=== PATIENT | female | born 1940 | race Caucasian/White ===

== ENCOUNTER 2017-10-31 06:44 | Day surgery (SDC) | payer MEDICARE, OTHER ==
[~2017-10-31 06:44] MED LIST: KETOROLAC TROMETHAMINE 0.45% 4 DROP/0.4 ML DROPERETTE OD PRN
[2017-10-31] MEDS: TETRACAINE HCL 0.5% OPH SOLN 2 ML OD PRN ×3 (07:00→07:53)
[2017-10-31] MEDS: CYCLOPENTOLATE 0.2%/PHENYLEPHRINE 1% OPH SOLN 2 ML OD PRN ×3 (07:01→07:26)
[2017-10-31] MEDS: BESIFLOXACIN HCL 0.6% OPH SUSP 5 ML BOTTLE OD PRN ×3 (07:01→08:17)
[2017-10-31] MEDS: TROPICAMIDE 1% OPH SOLN 3 ML OD PRN ×3 (07:01→07:26)
[2017-10-31] MEDS ORDERED: EPINEPHRINE INJ/PF 1 MG/1 ML AMPULE ONE (07:06)
[2017-10-31] MEDS ORDERED: LIDOCAINE 1% INJ-PF (10 MG/ML) 30 ML SDV ONE (07:07)
[2017-10-31] MEDS ORDERED: CHONDR SU A NA/HYALUR INTRAOC KIT (SURGICARE) ONE (07:07)
[2017-10-31] MEDS ORDERED: MIDAZOLAM 2 MG/2 ML INJ ONE (07:16)
--- NOTE | 2017-10-31 14:54 | [facility] OPERATIVE REPORT E ---
[facility] Operative Report NAME: ROMAN VIRGEN AGE: 77Y DATE OF SURGERY: 10/31/2017 ROOM: PREOPERATIVE DIAGNOSIS: CATARACT, RIGHT EYE. POSTOPERATIVE DIAGNOSIS: CATARACT, RIGHT EYE. OPERATION: Cataract extraction with intraocular lens implant of the right eye. SURGEON: KENDAL GREY M.D. ANESTHESIA: Topical. PROCEDURE: After obtaining appropriate consent, the patient's @ eye was prepped and draped in sterile fashion as well as the surgeon in a sterile manner and cataract surgery was started. First a paracentesis blade was used to make a small side-port incision. Viscoelastic was used to inflate the anterior chamber. Next a 2.4 mm incision was made with the paracentesis blade. A continuous capsulorrhexis incision was made using a cystotome and Utrata forceps. Following this hydrodissection was carried out to make the lens fully loose and mobile and it was rotated 90 degrees. Following this, a mjscwk-vzo-csovblo technique was used to phacoemulsify the lens with a CDE of 18.61. The remaining cortex was removed with irrigation/aspiration. Provisc was instilled into the capsular bag to inflate the bag. A SN60WF, 18.5 diopter lens was placed. The remaining viscoelastic material was removed with irrigation/aspiration. The incision was found to be watertight. Vigamox was instilled in the eye and a protective shield was placed over the eye. The patient returned to the postoperative recovery in stable condition. DICTATING PHYSICIAN: KENDAL GREY M.D. [id number] PHY#: [id number] ID: [id number] JOB#: [id number] ACCT: [id number] cc:KENDAL GREY M.D. > MTDD
--- NOTE | 2017-10-31 15:00 | [facility] DISCHARGE SUMMARY E ---
[facility] Discharge Summary NAME: ROMAN VIRGEN AGE: 77Y ADMITTED: 10/31/2017 DISCHARGED: 10/31/2017 FINAL DIAGNOSIS: Cataract, right eye. HISTORY: The patient is a 77-year-old female who underwent cataract extraction of the right eye. HOSPITAL COURSE: The patient underwent surgery because of having trouble seeing words on the television and the screen at the restorationist. DISCHARGE INSTRUCTIONS: She is to be on a regular diet. No bending at waist. No heavy lifting. She is to use Besivance, Ilevro and Durezol at 3 p.m. and 8 p.m. and sleep with the right eye shield. I will see her for her 1-day postoperative tomorrow. DICTATING PHYSICIAN: KENDAL GREY M.D. [id number] PHY#: [id number] ID: [id number] JOB#: [id number] ACCT: [id number] cc:KENDAL GREY M.D. >
== END 2017-10-31 09:03 | disposition home or self-care (01) ==
LOC: SC 06:44
PROVIDERS: ATTEND Internal Medicine
DX: H25.11 Age-related nuclear cataract, right eye (principal); H04.123 Dry eye syndrome of bilateral lacrimal glands; H40.053 Ocular hypertension, bilateral; Z96.1 Presence of intraocular lens; H43.813 Vitreous degeneration, bilateral; I15.0 Renovascular hypertension; E78.00 Pure hypercholesterolemia, unspecified; I49.9 Cardiac arrhythmia, unspecified; I51.9 Heart disease, unspecified; Z79.899 Other long term (current) drug therapy; Z88.8 Allergy status to other drugs, medicaments and biological substances; Z87.891 Personal history of nicotine dependence; Z79.01 Long term (current) use of anticoagulants
CPT/HCPCS: 66984; V2632; J2250; J3490 ×2; A9270; J0171; 142

== ENCOUNTER 2020-05-11 08:22 | Day surgery (SDC) | payer MEDICARE, OTHER ==
[2020-05-06 13:10] LABS: HEMATOCRIT 40.6 % (36.0-47.0); HEMOGLOBIN 13.7 g/dL (12.0-15.5); MEAN CORPUSCULAR HGB CONC 33.8 g/dL (32.0-36.0); MEAN CORPUSCULAR VOLUME 89 fl (80-97); PLATELET COUNT 227 10^3/uL (150-450); RED BLOOD COUNT 4.58 10^6/uL (3.72-5.28); RED CELL DISTRIBUTION WIDTH 13.8 % (11.5-14.0); WHITE BLOOD COUNT 8.1 10^3/uL (4.0-10.5)
[2020-05-06 13:33] LABS: ANION GAP 12 (5-19); BLOOD UREA NITROGEN 23 mg/dL (7-20); CALCIUM 10.2 mg/dL (8.4-10.2); CARBON DIOXIDE 28 mmol/L (22-30); CHLORIDE 102 mmol/L (98-107); GLUCOSE 100 mg/dL (75-110)
--- NOTE | 2020-05-07 09:47 | EKG REPORT ---
SEVERITY:- ABNORMAL ECG - SINUS RHYTHM LEFT VENTRICULAR HYPERTROPHY ANTERIOR Q WAVES, POSSIBLY DUE TO LVH : Confirmed by: Ernesto Walton 07-May-2020 09:46:16
[~2020-05-11 08:22] MED LIST changes: +CEFAZOLIN 1 GM/D5W RTU 1 GM/50 ML RTUPB IV PRN; -KETOROLAC TROMETHAMINE 0.45% 4 DROP/0.4 ML DROPERETTE OD PRN; +LACTATED RINGERS 1000 ML IV PRN; +LIDOCAINE 0.5% INJ-PF (5 MG/ML) 50 ML SDV SUBCUT PRN
[2020-05-11] MEDS ORDERED: LIDOCAINE 4% CREAM 5 GM TUBE ONE (08:25)
[2020-05-11] MEDS ORDERED: CEFAZOLIN 1 GM/D5W RTU 1 GM/50 ML RTUPB IV ONE (08:25)
[2020-05-11] MEDS ORDERED: LIDOCAINE 2% INJ-PF (20 MG/ML) 10 ML AMPUL ONE (13:42)
[2020-05-11] MEDS ORDERED: FENTANYL CITRATE INJ/PF 100 MCG/2 ML AMPUL ONE ×2 (13:42→15:23)
[2020-05-11] MEDS ORDERED: HYDROMORPHONE HCL INJ/PF 2 MG/ML AMPULE ONE (13:42)
[2020-05-11] MEDS ORDERED: DEXAMETHASONE SOD PHOSPHATE INJ 4 MG/1 ML VIAL ONE (13:42)
[2020-05-11] MEDS ORDERED: PROPOFOL INJ 200 MG/20 ML VIAL IV ONE (13:43)
[2020-05-11] MEDS ORDERED: ONDANSETRON HCL INJ/PF 4 MG/2 ML SDV ONE (13:43)
[2020-05-11] MEDS ORDERED: LIDOCAINE 1%/EPINEPHRINE INJ 20 ML VIAL ONE (13:49)
[2020-05-11] MEDS ORDERED: MICROFIBRILLAR COLLAGEN 1 GM PACK ONE (13:49)
[2020-05-11] MEDS ORDERED: METHYLENE BLUE 50 MG/10 ML AMPULE ONE (14:04)
[2020-05-11] MEDS ORDERED: MEPERIDINE HCL/PF INJ 25 MG/1 ML DISP.SYRIN IV PRN (14:25)
[2020-05-11] MEDS ORDERED: DIPHENHYDRAMINE HCL 50 MG/ML VIAL IV PRN (14:25)
[2020-05-11] MEDS ORDERED: OXYCODONE-ACETAMINOPHEN 5-325 MG TABLET PO PRN ×3 (14:25→15:21)
[2020-05-11] MEDS ORDERED: PROMETHAZINE HCL INJ 25 MG/1 ML VIAL IV PRN ×2 (14:25)
[2020-05-11] MEDS ORDERED: MORPHINE SULFATE 10 MG/ML INJ IV PRN (14:25)
[2020-05-11] MEDS ORDERED: FENTANYL CITRATE INJ/PF 100 MCG/2 ML AMPUL IV PRN ×2 (14:25)
--- NOTE | 2020-05-11 15:04 | RADIOLOGY REPORT (SQ) ---
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 899 OTHER PENITENTIARY (CURRENT) DRUG THERAPY COMPARISON: None. RADIONUCLIDE AND DOSE: 574 microcuries TC-99m tilmanocept - Lymph[employer]ek. The route of agent administration: Subcutaneous in the skin. TECHNIQUE: The skin of the right breast was prepped in sterile fashion. The radiopharmaceutical was administered in equally divided doses in the periareolar breast. LIMITATIONS: None. FINDINGS: Images demonstrate activity at the injection site as well as within the right axilla. IMPRESSION: ADMINISTRATION OF RADIOPHARMACEUTICAL FOR SENTINEL LYMPH NODE EVALUATION. TECHNICAL DOCUMENTATION: JOB ID: [id number] 2010 [email or web address]- All Rights Reserved Reading location - IP/workstation name: [email or web address]
[2020-05-11] MEDS ORDERED: GLYCOPYRROLATE 1 MG/5 ML VIAL ONE (15:05)
--- NOTE | 2020-05-11 15:06 | RADIOLOGY REPORT (SQ) ---
EXAM DESCRIPTION: WIRE LOC MAMMO; BREAST SPECIMEN IMAGES COMPLETED DATE/TIME: 05/11/2020 11:15 am; 05/11/2020 2:54 pm REASON FOR STUDY: RT NEEDLE LOCALIZATION N63.10; RIGHT BREAST SPECIMEN IN OR N63.10 UNSPECIFIED LUM P IN THE RIGHT BREAST, UNSPECIFIED LA Z79.899 OTHER PULMONARY DISEASE SPECIALIST (CURRENT) DRUG THERAPY COMPARISON: None. TECHNIQUE: The biopsy marker in the right breast was localized mammographically using a grid marker . The skin of the breast was prepped in sterile fashion and local anesthesia was provided. The loca lization needle was advanced to the target. The tip was positioned adjacent to the target and confir med with two orthogonal views. Surgical dye was not injected for this procedure. The wire was placed through the needle and the hook engaged. Post procedure mammogram demonstrates satisfactory position of the needle and wire. Specimen radiograph demonstrates the intact localization wire as well as the targeted lesion within t he biopsy specimen. LIMITATIONS: None. FINDINGS: Procedure as above. Pathology: Pending. IMPRESSION: SUCCESSFUL NEEDLE LOCALIZATION OF THE LESION IN THE RIGHT BREAST. FOLLOW-UP PER THE PATIENT'S SURGEON. TECHNICAL DOCUMENTATION: JOB ID: [id number] 2010 [employer]- All Rights Reserved Reading location - IP/workstation name: [email or web address]
--- NOTE | 2020-05-11 15:21 | Discharge Summary ---
Discharge Summary (SDC) - Discharge Final Diagnosis: Right breast mass Date of Surgery: 05/11/20 Discharge Date: 05/11/20 Condition: Good Treatment or Instructions: [facility] [address] [id number] Care Instructions Following Your Lumpectomy Activities: Resume normal activities when you feel comfortable. It is best to remain as active as possible to speed your recovery. It is common to experience some fatigue after surgery and you may find that short naps are helpful. Avoid strenuous activity such as weight lifting, tennis, etc at your surgical site for two weeks. Perform gentle arm exercises daily and do not favor your operative arm to due increased risk of mobility issues postoperatively. No driving for 7 days after surgery. Do not drive if you are taking pain medication other than Tylenol or Ibuprofen. No swimming, tub baths or soaking in a hot tub for 4 weeks. There are no dietary restrictions. Do not smoke as this impairs wound healing. Surgical Site care: You may shower 24 hours after surgery to include washing the wound with soap and water using your hands. Do not scrub the incision. Pat the area dry with a towel. You do not need to recover the wound although some patients find that they feel more comfortable using a light dressing for a few days to absorb any minimal drainage which may occur. Do not use heating pad or apply an ice pack to the operative site. You may apply deodorant if you are careful to avoid getting it on the wound itself. Medications: Resume all of your normal prescription medications after your surgery unless instructed otherwise. You may experience constipation after surgery while taking pain medications. If using a narcotic on a regular basis, take a stool softener such as Colace twice a day. It is helpful to stay hydrated by drinking lots of fluids. Walking is also helpful and is good exercise after surgery. If you need extra help, use Milk of Magnesia according to the directions on the package. Follow-up: Call our office at to make a follow-up appointment in 10-14 days. Your doctor will call to discuss the pathology report with you as soon as it is available. Concerns: If you had a sentinel lymph node biopsy with your mastectomy, your urine may have a greenish discoloration. This is normal and will resolve as the blue dye slowly leaves your system. If you notice significant leakage around the drains, this is not normal. The drains may be clogged. Please call our office to come in immediately for the drains to be checked. Some bruising may occur and will go away over time. If you have a fever of 101.5 or greater, chills, redness at the incision site, excessive drainage from your wound or severe pain not relieved by pain medication, call your doctor. A physician is available 24 hours a day 7 days a week in addition to regular office hours. If problems arise after normal office hours please call the hospital at . Please call if you have any questions or concerns. Prescriptions: Tramadol HCl [Ultram 50 mg Tablet] 50 mg PO Q6HP PRN #20 tab PRN Reason: Referrals: ELMER BEJARANO MD [Primary Care Provider] - Discharge Diet: As Tolerated Discharge Activity: Balance Activity w/Rest, No Lifting Over 10 Pounds, No Lifting/Push/Pulling, Walk Frequently Report the Following to Your Physician Immediately: Increase in Pain, Yellow Skin, Fever over 101 Degrees, Unusual Bleeding, Redness, Swelling, Warmth, Increased Soreness, Drainage-Foul Smelling, Large Clots
--- NOTE | 2020-05-11 15:24 | Operative Report ---
Operative Report DATE OF SURGERY: 05/11/20 PREOPERATIVE DIAGNOSIS: 1. Proliferative lesion right breast status post core biopsy. 2. Abdominal aortic aneurysm POSTOPERATIVE DIAGNOSIS: Same OPERATION: 1. Focused ultrasound of the right breast, and ultrasound directed right breast excisional lumpectomy following needle wire localization. 2. [place] lymph node biopsy right axilla x1 using dual mapping techniques. 3. Interpretation of specimen radiograph intraoperatively SURGEON: JOSEPH FRYE MIXING MACHINE OPERATOR: ROMMEL HAWKINS ANESTHESIA: Other - Via LMA TISSUE REMOVED OR ALTERED: Right breast lumpectomy with needle localization wire and clip; right axillary sentinel lymph node COMPLICATIONS: None ESTIMATED BLOOD LOSS: Scant INTRAOPERATIVE FINDINGS: See below PROCEDURE: Patient was seen in the preop holding area where the right breast was marked, an d right axilla skin with the neoprobe. There was an area of increased activity consistent with successful lymphatic mapping consistent with lymphoscintigraphy showing an area of increased activity in the right axilla. The patient was taken to the operating room where general anesthesia was induced via LMA. The right breast and axilla were exposed widely. The previously placed needle localization wire were trimmed at the patient's skin level. The right breast was then injected with 2 cc of full-strength methylene blue, areolar border, intradermally. The right breast was then prepped and draped in sterile fashion along with the right axilla with Betadine Surgical plan and surgical timeout were conducted. We proceeded with the sentinel lymph node biopsy portion of the operation first. The right axilla was scanned with the neoprobe, an area of increased activity again confirmed in the low axilla. The skin was anesthetized 1% plain lidocaine, and a 3 cm incision was made with a #10 blade overlying the point of maximum 2 activity. A sentinel lymph node was harvested at level 1, both blue and hot with an in vivo count of 30,056 and an ex vivo count of 38,740. Background counts were negligible. The sentinel lymph node biopsy portion of the operation using dual mapping technique was felt to be complete. Attention was now directed to the right breast lumpectomy. The variable frequency linear transducer was used to scan the right breast. The previously placed clip marker at site of minimally invasive biopsy could not be seen with ultrasound, however the needle and wire could be tracked. The wire entered the breast approximately 6 cm medial to the right nipple at the 3 o'clock position. The termination point was at the nipple. Therefore we anesthetized the right areolar border with 1% plain lidocaine, and a 3-1/2 to 4 cm curvilinear incision was made with a #10 blade. Using ultrasound as a guide, as well as visual inspection of the wire and needle, a lumpectomy specimen approximately 5 x 4 x 4 cm was removed from the right breast just to the medial and deep aspect of the areolar border. The final specimen included the wire but not the needle as the needle had been removed in the dissection process. The lumpectomy specimen had a silk suture placed in the superior position cut short and along silk suture in the lateral position cut long. The specimen was placed on a Ramon dish, and imaged with the portable specimen radiograph device in the operating room. 2 views were obtained both showing retention of the clip in the center of the specimen as well as the localization wire. The specimen was now placed in a container and taken personally by Dr. Wright to Dr. Ryan, pathologist, who evaluated the specimen and felt by palpation that the target lesion was in the center of the lumpectomy specimen, and margins were grossly clear. There was felt to be no indication for additional margin resection. We returned to the patient, checked both wound sites for bleeding and there was none. Wounds were closed primarily with 3-0 Vicryl and Indocin skin glue. Patient tolerated the procedure well, extubated, taken to recovery room in stable condition. RUDI Humphries assisted with tissue retraction, and wound closure. Note: Hard copy of ultrasound intraoperative image retained in the patient's record under progress notes.
[2020-05-11] MEDS: FENTANYL CITRATE INJ/PF 100 MCG/2 ML AMPUL IV PRN ×2 (15:25→15:30)
[2020-05-11] MEDS ORDERED: OXYCODONE-ACETAMINOPHEN 5-325 MG TABLET ONE (16:21)
[2020-05-11 18:09] VITALS: BP 166/84
== END 2020-05-11 17:45 | disposition home or self-care (01) ==
LOC: OROUT 08:22
PROVIDERS: ATTEND Surgery
DX: D05.11 Intraductal carcinoma in situ of right breast (principal); D24.1 Benign neoplasm of right breast; N64.1 Fat necrosis of breast; I10 Essential (primary) hypertension; I71.4 Abdominal aortic aneurysm, without rupture; I25.10 Atherosclerotic heart disease of native coronary artery without angina pectoris; Z95.5 Presence of coronary angioplasty implant and graft; Z85.828 Personal history of other malignant neoplasm of skin; Z20.828 Contact with and (suspected) exposure to other viral communicable diseases; Z79.899 Other long term (current) drug therapy; Z87.891 Personal history of nicotine dependence; E78.00 Pure hypercholesterolemia, unspecified; Z79.02 Long term (current) use of antithrombotics/antiplatelets; Z96.0 Presence of urogenital implants; Z90.5 Acquired absence of kidney
CPT/HCPCS: 19301; 38500; 93005; 36415; 85027; 80048; 88342 ×2; 88307 ×2; 78195; 93010; 00400; 19281; 76098; U0003; A9520; J0690; J1100; J3010; J3490 ×4; A9270; J2405; J2704; Q9968; C9803; 400; 87635; J1170

== ENCOUNTER → 2020-05-13 | Outpatient (CLI) | payer MEDICARE, OTHER ==
--- NOTE | 2020-05-18 15:22 | WOMENS IMAGING REPORT ---
EXAM DESCRIPTION: BREAST SPECIMEN COMPLETE DATE/TIME: 05/13/2020 10:04 am REASON FOR STUDY: N63.10 UNSPECIFIED LUMP IN THE RIGHT BREAST, UNSPECIFIED QUADRANT N63.10 UNSPECIF IED LUMP IN THE RIGHT BREAST, UNSPECIFIED LA FINDINGS: Please see combined report for performance of procedure and radiologic supervision and int erpretation. IMPRESSION: Please see combined report for performance of procedure and radiologic supervision and i nterpretation. Reading location - IP/workstation name: [email or web address]
== END ==
LOC: WI 09:52
PROVIDERS: ATTEND Internal Medicine
DX: N63.10 Unspecified lump in the right breast, unspecified quadrant (principal)
CPT/HCPCS: 76098